=== PATIENT | female | born 1955 | race Caucasian/White ===

== ENCOUNTER 2018-01-04 13:53 | Outpatient (CLI) | payer BC ==
--- NOTE | 2018-01-04 16:58 | MMO ---
MAMMOGRAM DIGITAL SCREENING BILATERAL: DATE: 01/04/18 HISTORY: 62-year-old female for routine bilateral screening mammogram. COMPARISON: 03/20/16 and 10/29/11. TECHNIQUE: Digital mammographic views. Computer-aided detection (CAD) utilized. FINDINGS: There are scattered areas of fibroglandular density. There is no evidence of suspicious mass, suspicious calcifications, or architectural distortion. The re is no significant interval change since the prior mammogram. IMPRESSION: 1) BIRADS 1- Negative. 2) Recommendation: routine bilateral annual screening mammogram (unless the patient develops suspicio us clinical findings that would warrant earlier imaging follow up). ann [] POS: NANO
== END 2018-01-04 13:54 | disposition home or self-care (01) ==
LOC: SCSMAMMO 13:53
PROVIDERS: ATTEND Obstetrics & Gynecology
DX: Z12.31 Encounter for screening mammogram for malignant neoplasm of breast (principal)
CPT/HCPCS: 77067